=== PATIENT | male | born 1995 | race Caucasian/White ===

== ENCOUNTER 2017-08-22 09:48 | Emergency (ER) | payer OTHER ==
[~2017-08-22] VITALS: Ht 157.5 cm; Wt 90.5 kg
[2017-08-22 09:51] VITALS: Ht 157.5 cm; Wt 90.5 kg
[2017-08-22] MEDS ORDERED: AZITHROMYCIN 250 MG TAB PO ONE (11:30)
[2017-08-22] MEDS ORDERED: CEFTRIAXONE 250 MG INJ IM ONE (11:30)
[2017-08-22] MEDS ORDERED: LIDOCAINE 1% (MDV) 20 ML INJ ONE (11:52)
[2017-08-22 12:43] LABS: ADD UMIC NO; UR ASCORBIC ACID NEGATIVE (NEGATIVE); UR BILIRUBIN (Dip) NEGATIVE (NEGATIVE); UR BLOOD (Dip) NEGATIVE (NEGATIVE); UR CLARITY CLEAR (CLEAR); UR COLOR YELLOW (YELLOW); UR GLUCOSE (Dip) NEGATIVE (NEGATIVE); UR KETONES (Dip) TRACE mg/dL (NEGATIVE); UR LEUKOCYTE ESTERASE (Dip) NEGATIVE Leu/ul (NEGATIVE); UR NITRITE (Dip) NEGATIVE (NEGATIVE); UR SPECIFIC GRAVITY (Dip) 1.024 (1.003-1.030); UR TOTAL PROTEIN (Dip) NEGATIVE (NEGATIVE); UR UROBILINOGEN (Dip) NEGATIVE (NEGATIVE)
--- NOTE | 2017-08-22 14:51 | ERD ---
ER Documentation Chief Complaint Chief Complaint Complains of painful urination x3 days HPI Patient is a 21-year-old male who presents ED for concerns of painful urination 3 months. Patient states he has burning pain with urinating. Patient denies any frequency or urgency. Patient denies any hematuria. Patient denies any penile discharge or testicular pain. Patient states yesterday he did notice a bump on his penis which is extremely concerning to him. Patient states he last had sexual activity over 8 months ago. Patient denies any fevers, chills, nausea, vomiting, abdominal pain, rectal bleeding or loss consciousness. ROS All systems reviewed and are negative except as per history of present illness. Medications Home Meds No Active Prescriptions or Reported Meds Allergies Allergies: Coded Allergies: No Known Allergy (Unverified , 09/08/13) PMhx/Soc Medical and Surgical Hx: pt denies Medical Hx, pt denies Surgical Hx History of Surgery: No Anesthesia Reaction: No Hx Alcohol Use: No Hx Substance Use: No Hx Tobacco Use: No Smoking Status: Never smoker Physical Exam Vitals Vital Signs Date Time Temp Pulse Resp B/P Pulse Ox O2 Delivery O2 Flow Rate FiO2 08/22/17 09:51 98.8 90 20 153/79 98 Physical Exam GENERAL: Well-developed, well-nourished male. Appears in no acute distress. Appears anxious HEAD: Normocephalic, atraumatic. EYES: Pupils are equally reactive bilaterally. EOMs grossly intact. No conjunctival erythema. ENT: Moist mucous membranes. No uvula deviation. No kissing tonsils. ABDOMEN: No scars, ecchymosis or rashes noted. Soft, nontender, and nondistended. Positive bowel sounds in all four quadrants. No rebound tenderness , no guarding. (-) McBurney's point tenderness. No CVA tenderness. 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 Normal, circumcised penis without any lesions, masses or deformities noted. No herpetic lesions noted. No penile discharge noted. Normal scrotum without any masses, tenderness, swelling or erythema. EXTREMITIES: Equal pulses bilaterally. No peripheral clubbing, cyanosis or edema. No unilateral leg swelling. NEUROLOGIC: Alert and oriented. Moving all four extremities without any difficulty. Normal speech. Steady gait. SKIN: Normal color. Warm and dry. No rashes or lesions. Results 24 hrs Laboratory Tests Test 08/22/17 11:13 Urine Color YELLOW Urine Clarity CLEAR Urine pH 6.0 Urine Specific [place] 1.024 Urine Ketones TRACEmg/dL Urine Nitrite NEGATIVEmg/dL Urine Bilirubin NEGATIVEmg/dL Urine Urobilinogen NEGATIVEmg/dL Urine Leukocyte Esterase NEGATIVELeu/ul Urine Hemoglobin NEGATIVEmg/dL Urine Glucose NEGATIVEmg/dL Urine Total Protein NEGATIVEmg/dl Current Medications Medications (Trade) Dose Ordered Sig/Naif Route PRN Reason Start Time Stop Time Status Last Admin Dose Admin Azithromycin (Zithromax) 1,000 mg ONCE ONCE PO 08/22/17 11:30 08/22/17 11:31 DC 08/22/17 11:53 Ceftriaxone Sodium (Rocephin) 250 mg ONCE ONCE IM 08/22/17 11:30 08/22/17 11:31 DC 08/22/17 11:53 Lidocaine (Xylocaine 1% (Mdv) 20 ml) 20 ml STK-MED ONCE .ROUTE 08/22/17 11:52 08/22/17 11:53 DC Procedures/MDM MEDICAL DECISION MAKING: Patient is a 21-year-old male who presents ED for concerns of painful urination. Patient is concerned that he may have an STD. Patient states he has had unprotected sex 8 months ago. Vital signs were reviewed. Patient is afebrile. Patient was not hypoxic. Urinalysis is negative for acute infection or hematuria. I explained to the patient that his urine could be tested for gonorrhea and chlamydia. Patient wished to be treated empirically at his visit today. Urine gonorrhea and chlamydia testing pending. Patient was given azithromycin and Rocephin here in the ED. Patient also requested additional STD screening as well as blood work. I explained to the patient and will need to follow-up with his primary care physician for additional STD screenings. Patient was given a list of nearby clinics. At this time, patient presentation is most consistent with concerns of STDs. Low suspicion for herpes, phimosis, paraphimosis, testicular torsion, UTI, pyelonephritis, nephrolithiasis. Unable to rule out HIV or syphilis at this time. DISCHARGE: At this time, patient is stable for discharge and outpatient management. I have instructed the patient to follow-up with his/her primary care physician in 1-2 days. I have discussed with the patient the possibility of needing to see a specialist for further workup and imaging studies if symptoms persist. I have instructed the patient to promptly return to the ER for any new or worsening symptoms including increased pain, fever, nausea, vomiting, weakness or LOC. The patient and/or family expressed understanding of and agreement with this plan. All questions were answered. Home care instructions were provided. Disclaimer: Inadvertent spelling and grammatical errors are likely due to EHR/ dictation software use and do not reflect on the overall quality of patient care. Also, please note that the electronic time recorded on this note does not necessarily reflect the actual time of the patient encounter. Departure Diagnosis: Primary Impression: Concern about STD in male without diagnosis Additional Impression: Dysuria Condition: Stable Patient Instructions: What Are Sexually Transmitted Diseases (STDs)? Referrals: COMMUNITY CLINICS YOU HAVE RECEIVED A MEDICAL SCREENING EXAM AND THE RESULTS INDICATE THAT YOU DO NOT HAVE A CONDITION THAT REQUIRES URGENT TREATMENT IN THE EMERGENCY DEPARTMENT. FURTHER EVALUATION AND TREATMENT OF YOUR CONDITION CAN WAIT UNTIL YOU ARE SEEN IN YOUR DOCTORS OFFICE WITHIN THE NEXT 1-2 DAYS. IT IS YOUR RESPONSIBILITY TO MAKE AN APPOINTMENT FOR FOLOW-UP CARE. IF YOU HAVE A PRIMARY DOCTOR --you should call your primary doctor and schedule an appointment IF YOU DO NOT HAVE A PRIMARY DOCTOR YOU CAN CALL OUR PHYSICIAN REFERRAL HOTLINE AT IF YOU CAN NOT AFFORD TO SEE A PHYSICIAN YOU CAN CHOSE FROM THE FOLLOWING [facility] CLINICS [facility] [address] [facility]. [facility] [address] [facility] [address] [facility] [address] [facility] [facility] [address] [facility]. [facility]. [address] [facility]. [facility] YOU HAVE RECEIVED A MEDICAL SCREENING EXAM AND THE RESULTS INDICATE THAT YOU DO NOT HAVE A CONDITION THAT REQUIRES URGENT TREATMENT IN THE EMERGENCY DEPARTMENT. FURTHER EVALUATION AND TREATMENT OF YOUR CONDITION CAN WAIT UNTIL YOU ARE SEEN IN YOUR DOCTORS OFFICE WITHIN THE NEXT 1-2 DAYS. IT IS YOUR RESPONSIBILITY TO MAKE AN APPOINTMENT FOR FOLOW-UP CARE. IF YOU HAVE A PRIMARY DOCTOR --you should call your primary doctor and schedule and appointment IF YOU DO NOT HAVE A PRIMARY DOCTOR YOU CAN CALL OUR PHYSICIAN REFERRAL HOTLINE AT . IF YOU CAN NOT AFFORD TO SEE A PHYSICIAN YOU CAN CHOSE FROM THE FOLLOWING [facility] INSTITUTIONS: [facility] [address] [place] [address] [facility] [address] [place] [address] [facility] + [facility] [address] [place] [address] Additional Instructions: Call your primary care doctor TOMORROW for an appointment during the next 1-2 days.See the doctor sooner or return here if your condition worsens before your appointment time. Follow up with your primary care physician for further testing as desired including but not limited to complete blood work, syphilis, HIV testing. KINJAL ZAMBRANO PA-C Aug 22, 2017 14:51
== END 2017-08-22 13:06 | disposition home or self-care (01) ==
LOC: FTE 09:48
DX: R30.0 Dysuria (principal); Z20.2 Contact with and (suspected) exposure to infections with a predominantly sexual mode of transmission
CPT/HCPCS: 81003; 87591; 96372; J0696; Z7502; Z7610